=== PATIENT | female | born 1950 | race Caucasian/White ===

== ENCOUNTER 2024-05-02 12:53 | Inpatient (IN) | payer OTHER ==
[~2024-05-02] VITALS: Ht 160 cm; Wt 61.4 kg
[2024-05-02 13:05] VITALS: BP_SYST 196; PULSE 74; RESP 16; TEMP 97.6; O2SAT 99
[2024-05-02] MEDS: MORPHINE 2 MG/ML INJ. SYRINGE IM ONE (14:02)
[2024-05-02 14:46] LABS: BASOPHILS # (AUTO) 0.1 K/uL (0.0-0.2); BASOPHILS % (AUTO) 0.8 % (0.0-2.0); EOSINOPHILS % (AUTO) 0.1 % (0.0-4.0); HEMATOCRIT 40.4 % (36-48); LYMPHOCYTES # (AUTO) 1.7 K/uL (1.0-5.5); LYMPHOCYTES % (AUTO) 23.2 % (20.5-51.5); MEAN CORPUSCULAR HEMOGLOBIN 33 pg (27-31); MEAN CORPUSCULAR HGB CONC 35 % (32-36); MEAN CORPUSCULAR VOLUME 96 fL (79.0-98.0); MONOCYTES # (AUTO) 0.5 K/uL (0.0-1.0); MONOCYTES % (AUTO) 6.9 % (1.7-9.3); PLATELET COUNT (AUTO) 132 K/uL (130-430); RED BLOOD CELL COUNT(AUTO) 4.22 MIL/uL (4.2-6.2); RED CELL DISTRIBUTION WIDTH 14.3 % (9.0-15.0); WHITE BLOOD COUNT (AUTO) 7.2 K/uL (4.8-10.8)
[2024-05-02 15:16] LABS: ANION GAP 12 (5-15); CALCIUM 8.4 mg/dL (8.4-11.0); CARBON DIOXIDE 21 mmol/L (23-29); CHLORIDE 103 mmol/L (98-107); CREATININE 0.54 mg/dL (0.55-1.30); GLUCOSE 206 mg/dL (74-106); POTASSIUM 3.9 mmol/L (3.5-5.1); SODIUM SERUM 136 mmol/L (136-145); UREA NITROGEN, BLOOD 6 mg/dL (8-21)
[2024-05-02 15:37] LABS: PROTHROMBIN TIME 10.8 SECS (9.5-12.5)
[2024-05-02] MEDS ORDERED: MUPIROCIN 2% TOPICAL OINTMENT 22 GM NS PRN (15:45)
[2024-05-02] MEDS ORDERED: DEXTROSE 50% JECT 50 ML DISP.SYRIN IVP PRN (15:45)
[2024-05-02] MEDS ORDERED: ONDANSETRON HCL 4 MG/2 ML VIAL IVP PRN (15:45)
[2024-05-02] MEDS ORDERED: MAGNESIUM SULFATE 50 ML IV PRN (15:45)
[2024-05-02] MEDS ORDERED: DOCUSATE SODIUM 100 MG CAPSULE PO PRN (15:45)
[2024-05-02] MEDS ORDERED: ACETAMINOPHEN 325 MG TABLET PO PRN ×4 (15:45)
[2024-05-02] MEDS: NACL 0.9% 1,000 ML IV SCH (16:25)
[2024-05-02] MEDS: METOPROLOL TARTRATE 25 MG TABLET PO ONE (16:32)
[2024-05-02] MEDS: KETOROLAC TROMETHAMINE 15 MG VIAL IVP PRN (16:41)
[2024-05-02] MEDS ORDERED: INSULIN Lispro 100 UNITS/ML, 3 ML VIAL (humaLOG) ONE (17:19)
[2024-05-02] MEDS: INSULIN LISPRO SLIDING SCALE 100 UNITS/ML, 3 ML VIAL (humaLOG) SUBCUT PRN (17:21)
[2024-05-02] MEDS ORDERED: TEMA30CA PO (18:56)
[2024-05-02] MEDS ORDERED: METF-1069 PO (18:56)
[2024-05-02] MEDS ORDERED: LOSA100T24 PO (18:57)
[2024-05-02] MEDS ORDERED: METO200T37 PO (18:57)
[2024-05-02] MEDS ORDERED: EMPA25TA PO (18:57)
[2024-05-02] MEDS ORDERED: EVOL140P3 SUBCUT (18:57)
[2024-05-02] MEDS: LORazepam 2 MG/ML VIAL IVP PRN (20:56)
[2024-05-02] MEDS: hydrALAZINE HCL 20 MG/ML VIAL IVP PRN (20:57)
[2024-05-02] MEDS ORDERED: METOPROLOL TARTRATE 25 MG TABLET PO SCH (21:00)
[2024-05-02] MEDS: METOPROLOL TARTRATE 25 MG TABLET PO SCH (21:42)
[2024-05-02 23:29] VITALS: BP_SYST 170; PULSE 74; RESP 18; TEMP 98.2; O2SAT 95
[2024-05-03] MEDS: ZOLPIDEM TARTRATE 5 MG TABLET PO PRN (00:04)
[2024-05-03 03:58] VITALS: BP_SYST 149; PULSE 71; RESP 18; TEMP 98.4; O2SAT 93
[2024-05-03 04:30] VITALS: BP_SYST 151; PULSE 72; RESP 18; TEMP 98.8; O2SAT 93
[2024-05-03 05:12] LABS: BASOPHILS % (AUTO) 0.7 % (0.0-2.0); EOSINOPHILS % (AUTO) 0.5 % (0.0-4.0); HEMOGLOBIN 12.9 g/dL (12.0-16.0); LYMPHOCYTES # (AUTO) 1.5 K/uL (1.0-5.5); LYMPHOCYTES % (AUTO) 25.8 % (20.5-51.5); MEAN CORPUSCULAR HEMOGLOBIN 33 pg (27-31); MEAN CORPUSCULAR HGB CONC 35 % (32-36); MEAN CORPUSCULAR VOLUME 96 fL (79.0-98.0); MONOCYTES # (AUTO) 0.5 K/uL (0.0-1.0); MONOCYTES % (AUTO) 7.9 % (1.7-9.3); NEUTROPHILS # (AUTO) 3.7 K/uL (1.8-7.7); NEUTROPHILS % (AUTO) 65.1 % (40.0-70.0); PLATELET COUNT (AUTO) 107 K/uL (130-430); RED BLOOD CELL COUNT(AUTO) 3.87 MIL/uL (4.2-6.2); RED CELL DISTRIBUTION WIDTH 14.1 % (9.0-15.0); WHITE BLOOD COUNT (AUTO) 5.7 K/uL (4.8-10.8)
[2024-05-03 05:27] LABS: ANION GAP 13 (5-15); CALCIUM 8.2 mg/dL (8.4-11.0); CARBON DIOXIDE 23 mmol/L (23-29); CHLORIDE 103 mmol/L (98-107); CREATININE 0.58 mg/dL (0.55-1.30); GLUCOSE 151 mg/dL (74-106); POTASSIUM 3.4 mmol/L (3.5-5.1); SODIUM SERUM 139 mmol/L (136-145); UREA NITROGEN, BLOOD 9 mg/dL (8-21)
[2024-05-03 05:47] LABS: BILIRUBIN,URINE NEGATIVE (NEGATIVE); BLOOD, URINE NEGATIVE (NEGATIVE); COLOR,URINE YELLOW (YELLOW); GLUCOSE,URINE TRACE (NEGATIVE); KETONES,URINE NEGATIVE (NEGATIVE); LEUKOCYTE ESTERASE ,URINE TRACE (NEGATIVE); NITRITE, URINE NEGATIVE (NEGATIVE); PROTEIN URINE TRACE (NEGATIVE)
[2024-05-03 05:57] LABS: CLARITY/URINE SLIGHTLY CLOUDY (CLEAR)
[2024-05-03 05:58] LABS: RBC,URINE 0-3 /HPF (0-3)
[2024-05-03 05:59] LABS: BACTERIA,URINE FEW /HPF (None Seen)
[2024-05-03 08:23] VITALS: BP_SYST 134; PULSE 66; RESP 18; TEMP 97; O2SAT 96
[2024-05-03] MEDS ORDERED: cefTRIAXone 1 GM in D5W 50 ML IV SCH (11:00)
[2024-05-03] MEDS: MIDAZOLAM HCL 2 MG/2 ML VIAL (VERSED) ONE (12:06)
[2024-05-03] MEDS: fentaNYL CITRATE/PF 100 MCG/2 ML AMP ONE (12:06)
[2024-05-03] MEDS: ACETAMINOPHEN I.V. 1000 MG 100 ML IV ONE (12:06)
[2024-05-03] MEDS ORDERED: ceFAZolin SODIUM 2 GM VIAL ONE (12:07)
[2024-05-03] MEDS ORDERED: fentaNYL CITRATE/PF 100 MCG/2 ML AMP IVP PRN ×2 (12:45)
[2024-05-03] MEDS ORDERED: LR 1,000 ML IV ONE (12:45)
[2024-05-03] MEDS ORDERED: NALOXONE HCL 0.4 MG/ML AMP (NARCAN) IVP PRN (12:45)
[2024-05-03] MEDS ORDERED: HYDROmorphone 1 MG/ML INJ. CARTRIDGE IVP PRN (12:45)
[2024-05-03] MEDS ORDERED: ONDANSETRON HCL 4 MG/2 ML VIAL IVP PRN (12:45)
[2024-05-03] MEDS: LOSARTAN POTASSIUM 50 MG TABLET (COZAAR) PO SCH (15:26)
[2024-05-03] MEDS: POTASSIUM CHLORIDE 20 MEQ TABLET.ER PO PRN (15:26)
[2024-05-03 16:01] VITALS: BP_SYST 120; PULSE 70; RESP 17; TEMP 98.1; O2SAT 99
[2024-05-03] MEDS: CEFAZOLIN 2 GM IVPB PREMIX 50 ML IV SCH (17:09)
[2024-05-03 20:00] VITALS: BP_SYST 136; PULSE 66; RESP 18; TEMP 97.7; O2SAT 95
[2024-05-03 20:15] VITALS: O2SAT 95
[2024-05-04 00:31] VITALS: BP_SYST 154; PULSE 75; RESP 17; TEMP 97.1
[2024-05-04 05:54] LABS: BASOPHILS % (AUTO) 0.7 % (0.0-2.0); EOSINOPHILS % (AUTO) 0.7 % (0.0-4.0); HEMATOCRIT 29.9 % (36-48); HEMOGLOBIN 10.6 g/dL (12.0-16.0); LYMPHOCYTES # (AUTO) 1.2 K/uL (1.0-5.5); LYMPHOCYTES % (AUTO) 23.9 % (20.5-51.5); MEAN CORPUSCULAR HEMOGLOBIN 34 pg (27-31); MEAN CORPUSCULAR HGB CONC 36 % (32-36); MEAN CORPUSCULAR VOLUME 96 fL (79.0-98.0); MONOCYTES # (AUTO) 0.4 K/uL (0.0-1.0); MONOCYTES % (AUTO) 7.8 % (1.7-9.3); NEUTROPHILS # (AUTO) 3.5 K/uL (1.8-7.7); NEUTROPHILS % (AUTO) 66.9 % (40.0-70.0); PLATELET COUNT (AUTO) 86 K/uL (130-430); RED CELL DISTRIBUTION WIDTH 13.8 % (9.0-15.0); WHITE BLOOD COUNT (AUTO) 5.2 K/uL (4.8-10.8)
[2024-05-04 06:21] LABS: ANION GAP 11 (5-15); CARBON DIOXIDE 22 mmol/L (23-29); CHLORIDE 105 mmol/L (98-107); CREATININE 0.49 mg/dL (0.55-1.30); GLUCOSE 177 mg/dL (74-106); POTASSIUM 3.6 mmol/L (3.5-5.1); SODIUM SERUM 138 mmol/L (136-145); UREA NITROGEN, BLOOD 9 mg/dL (8-21)
[2024-05-04 08:53] VITALS: BP_SYST 172; PULSE 98; RESP 18; TEMP 97.9; O2SAT 95
[2024-05-04 12:20] VITALS: BP_SYST 158; PULSE 78; RESP 18; TEMP 97.5; O2SAT 96
[2024-05-04] MEDS ORDERED: ASPI-859 PO (13:38)
[2024-05-04] MEDS ORDERED: HYDR-3917 PO (13:38)
[2024-05-04 15:00] VITALS: BP_SYST 158; PULSE 78; RESP 18; TEMP 97.5; O2SAT 96
== END 2024-05-04 15:40 | disposition home health service (06) | DRG 481 ==
LOC: SED 12:53 → SMU 15:07
PROVIDERS: ADMIT General Practice; ATTEND General Practice
PROC: 0QS606Z Reposition Right Upper Femur with Intramedullary Internal Fixation Device, Open Approach (ICD-10-PCS; principal; 2024-05-03 12:00)
DX: S72.144A Nondisplaced intertrochanteric fracture of right femur, initial encounter for closed fracture (principal); N39.0 Urinary tract infection, site not specified; E87.6 Hypokalemia; E11.65 Type 2 diabetes mellitus with hyperglycemia; F32.A Depression, unspecified; I25.10 Atherosclerotic heart disease of native coronary artery without angina pectoris; I10 Essential (primary) hypertension; E78.5 Hyperlipidemia, unspecified; W18.39XA Other fall on same level, initial encounter; Y93.89 Activity, other specified; Y92.89 Other specified places as the place of occurrence of the external cause; Y99.8 Other external cause status; Z79.899 Other long term (current) drug therapy; Z95.5 Presence of coronary angioplasty implant and graft; Z90.710 Acquired absence of both cervix and uterus; Z88.5 Allergy status to narcotic agent
CPT/HCPCS: 36415; 70450-TC; 71045; 72192-TC; 76000; 80048; 81000; 81001; 81015; 82948; 83037; 83735; 85025; 85610; 85730; 86886; 86900; 86901; 87081; 87086; 93005; 93306; 96361; 96372; 96374; 96375; 97110-GP; 97116-GP; 97530-GP; 99285; C1713; J0131; J0360; J0690; J0696; J1885; J2060; J2270; J2405; J2704; J3010; J3465; J3490; J7060; J7120